=== PATIENT | female | born 1965 | race Caucasian/White ===

== ENCOUNTER 2019-01-23 04:48 | Inpatient (IN) ==
--- NOTE | 2019-01-06 15:49 | PAT Medication Instructions ---
Medication Instructions Date of Service January 06, 2019 Home Medications amitriptyline 25 mg PO HS celecoxib [Celebrex] 200 mg PO BID multivitamin 1 tab PO QDD ASK your surgeon for instructions celecoxib [Celebrex] 200 mg PO BID Take evening before surgery amitriptyline 25 mg PO HS multivitamin 1 tab PO QDD Other Notes If you have any questions please call us at [phone] or [phone] or [phone] or [phone]
--- NOTE | 2019-01-09 11:47 | Anesthesiology Consultation ---
Date of Service January 09, 2019 Assessment & Plan (1) Encounter for pre-operative examination: Chart Review Chart Review: Acceptable Risk for Surgery (pending surgeon-ordered PCP clearance done 12/30 ([facility])) and Patient seen in Pre Admission Testing Teaching & Discussion Pre-Anesthesia Teaching/Discussion Notes: Instructed NPO after midnight before surgery,except medications with 15 cc of water. Medication instructions provided according to the PAT guidelines. History Surgery Operation Date: 01/23/19 07:00 Proposed Procedures p Left Anterior Total Hip Arthroplasty - Aime Bryan DO Height/Weight Height: 5 ft 7 in Weight: 93.4 kg Allergies Allergy/AdvReac Type Severity Reaction Status Date / Time No Known Allergies Allergy Verified 01/03/19 08:35 Medications Home Medications Medication Instructions Recorded Confirmed Last Taken amitriptyline 25 mg PO HS 01/03/19 01/03/19 Unknown celecoxib [Celebrex] 200 mg PO BID 01/03/19 01/03/19 Unknown multivitamin 1 tab PO QDD 01/03/19 01/03/19 Unknown Past Medical History Medical History Obesity Osteoarthritis Exercise / Class Metabolic Activity II 4-5 Yardwork/Stairs/Walk up hill Past Surgical History Surgical History History of surgery I&D RIGHT LEG Hx of tubal ligation Past Anesthesia History No Hx of Anesthesia Complications and No Family Hx of Anesthesia Complications History of PONV No Hx of PONV and No Hx of Motion Sickness Social History Smoking Status: Never smoker Do You Dip or Chew Tobacco: No Hx Alcohol Use: Yes Alcohol type: wine alcohol intake frequency: a few times a month Hx Substance Use: No Review of Systems Chronic left hip pain. Patient denies chest pain, shortness of breath, cough, wheezing, palpitations. Physical Exam Vital Signs VITALS BP 140/92 P 68 TEMP 98.3 SP02 99%RA RESP 16 PHYSICAL Full neck and c-spine range of motion. Full TMJ range of motion. TMD 3 finger breaths Mallampati Score 3 Dentition: intact Lungs: clear throughout to auscultation Cardiac: regular rate and rhythm, no murmurs noted Spine: normal Carotid arteries: negative bruit Extremities: no edema Testing Laboratory Results 01/09/19 12:07 01/09/19 12:07 PT 10.2 Seconds (9.0-12.0) 01/09/19 12:07 INR 1.0 (0.9-1.1) 01/09/19 12:07 APTT 24.3 Seconds (21.0-31.0) 01/09/19 12:07 Hemoglobin A1c 5.6 % (4.5-5.6) 01/09/19 12:07 Urine Color Yellow 01/09/19 12:07 Urine Appearance Clear (Clear) 01/09/19 12:07 Urine pH 6.5 (4.5-7.5) 01/09/19 12:07 Ur Specific Conner 1.014 (1.000-1.030) 01/09/19 12:07 Urine Protein Negative (Negative) 01/09/19 12:07 Urine Glucose (UA) Negative (Negative) 01/09/19 12:07 Urine Ketones Negative (Negative) 01/09/19 12:07 Urine Nitrite Negative (Negative) 01/09/19 12:07 Ur Leukocyte Esterase Negative (Negative) 01/09/19 12:07 Blood Type A Positive 01/09/19 12:07 Antibody Screen NEGATIVE 01/09/19 12:07 01/09/19 12:07 Urine Culture - Preliminary Urine,Clean Catch No growth - Less than 1,000 colonies/mL, Final report to follow. Electrocardiogram Date: 01/09/19 NSR at 69bpm. Rightward axis. Chest X-Ray Date: 01/09/19 Findings: + NAD Atherosclerosis of the aortic arch. Cardiac silhouette normal in size. Calcified granulomata likely within the right apex and left midlung. Lungs and pleural spaces otherwise clear.
[2019-01-09 12:35] LABS: Basophils # (auto) 0.02 K/uL (0-0.2); Basophils % (auto) 0.4 %; Eosinophils # (auto) 0.05 K/uL (0-0.5); Hematocrit (blood only) 41.7 % (37-47); Hemoglobin 14.2 g/dL (12.0-16.0); Immature Granulocytes # (auto) 0.01 K/uL (0.00-0.02); Immature Granulocytes % (auto) 0.2 %; Lymphocytes # (auto) 1.61 K/uL (1.2-3.4); Lymphocytes % (auto) 33.7 %; Mean Corpuscular Hgb Conc 34.1 g/dL (32-36); Mean Corpuscular Volume 90.3 fL (80-100); Monocytes # (auto) 0.36 K/uL (0.11-0.59); Monocytes % (auto) 7.5 %; Neutrophils # (auto) 2.73 K/uL (1.4-6.5); Neutrophils % (auto) 57.2 %; Platelet Count 185 K/uL (130-400); RDW Coefficient of Variation 13.3 % (11.5-14.5); RDW Standard Deviation 43.9 fL (36.4-46.3); Red Blood Count 4.62 M/uL (4.2-5.4); White Blood Count 4.78 K/uL (4.8-10.8)
[2019-01-09 12:40] LABS: Appearance Urine Clear (Clear); Bilirubin Urine Negative (Negative); Blood Urine Negative (Negative); Color Urine Yellow; Glucose Urine UA Negative (Negative); Ketones Urine Negative (Negative); Leukocyte Esterase Urine Negative (Negative); Nitrite Urine Negative (Negative); Protein Urine Negative (Negative); Specific Gravity Urine 1.014 (1.000-1.030); Urobilinogen Urine Negative (Negative); pH Urine 6.5 (4.5-7.5)
--- NOTE | 2019-01-09 12:40 | XRay Report ---
XR chest Pre-admission PA/Lat CLINICAL HISTORY: 53 years-old Female presenting with preoperative assessment. TECHNIQUE: PA and lateral views of the chest were obtained. COMPARISON: None. FINDINGS: Atherosclerosis of the aortic arch. Cardiac silhouette normal in size. Calcified granulomata likely w ithin the right apex and left midlung. Lungs and pleural spaces otherwise clear. Osseous structures n ormal. Upper abdomen normal. IMPRESSION: 1. No acute cardiopulmonary disease. Electronically signed by: Rickey Ribeiro M.D. 01/09/2019 12:38 PM
[2019-01-09 12:44] LABS: Albumin Level 3.7 gm/dl (3.4-5.0); BUN Creatinine Ratio 20.3 (10-20); Calcium 9.4 mg/dl (8.5-10.1); Creatinine Clr Calc Pharmacy 112.6 ml/min; Est GFR (African American) 115.5; Est GFR (Non-African American) 99.7; Potassium 4.6 mmol/L (3.5-5.1)
[2019-01-09 12:51] LABS: Partial Thromboplastin Ratio 0.9; Partial Thromboplastin Time 24.3 Seconds (21.0-31.0); Prothrombin Time 10.2 Seconds (9.0-12.0)
[2019-01-09 13:08] LABS: Estimated Average Glucose 114 mg/dl; Hemoglobin A1C 5.6 % (4.5-5.6)
--- NOTE | 2019-01-22 12:53 | History & Physical Report ---
Date of Service January 22, 2019 Assessment & Plan (1) Degenerative joint disease of left hip: I have indicated the patient for left anterior total hip replacement. The risks, benefits and complications of surgery were explained to the patient which include but not limited to infection, acute blood loss, DVT/PE, injury to nerves, vessels, bone, soft tissue, arthrofibrosis, chronic pain, failure of the prosthesis, hip dislocation, leg length discrepancy, need for additional surgery, cardiac and pulmonary events and . The patient wished to proceed with surgery and informed consent was obtained at this time. We will plan for ASA BID post-operatively for DVT prophylaxis. Upon discharge the patient will be discharged home with home health services. Appropriate clearances by PCP were obtained. The patient was asymptomatic for UTI. History of Present Illness Chief Complaint: Left hip pain/djd Primary Care Provider: Geno Hdz The patient is a 53 year old female who presents with complaints of severe left hip pain and DJD. The patient has failed outpatient conservative treatments to this point which included NSAIDs, IA corticosteroid injection, home exercise/walking program. The patient's pain and limited function have progressed to the point where they severely hinder their activities of daily living and they no longer tolerate exercise programs. They are requesting to proceed with total hip replacement surgery. Allergies Allergy/AdvReac Type Severity Reaction Status Date / Time No Known Allergies Allergy Verified 01/23/19 05:30 Home Medications Home Medications Medication Instructions Recorded Confirmed Type amitriptyline 25 mg PO HS 01/03/19 01/23/19 History celecoxib [Celebrex] 200 mg PO BID 01/03/19 01/23/19 History multivitamin 1 tab PO QDD 01/03/19 01/23/19 History Past Med/Surg History Medical History Obesity Osteoarthritis Surgical History History of surgery I&D RIGHT LEG Hx of tubal ligation Social History Preferred Language: Tristanian Beliefs That Will Affect Care: None Current Living Situation: Family Feels Safe at Home: Yes Safety Concerns: Feels Safe At This Time Smoking Status: Never smoker Do You Dip or Chew Tobacco: No Second Hand Exposure: No Hx Alcohol Use: Yes Alcohol type: wine Hx Substance Use: No Review of Systems Review of Systems: All systems reviewed & are unremarkable except as noted in HPI & below Constitutional: as per Subjective / HPI Physical Exam Physical Exam: LLE NVSI +EHL/FHL/TA/GS SILT grossly, +2 DP pulse, compartments soft NT, limited painful ROM of the hip, antalgic gait. Constitutional: WD/WN, vitals as above Eyes: PERRL, conjunctivae normal, anicteric sclerae ENMT: external ear and nose normal, oropharynx normal Neck: trachea midline, no thyromegaly Respiratory: normal respiratory effort, lungs clear to auscultation Cardiovascular: RRR, no murmur, no edema Gastrointestinal (Abdomen): normal bowel sounds, soft, nontender, no hepatosplenomegaly Musculoskeletal: no cyanosis or clubbing, extremities motor strength 5/5 Skin: no rashes, warm and dry Neurologic: patellar DTR's 2+ bilat, sensation intact Psychiatric: A+Ox3, euthymic affect Lymphatic: no cervical or axillary lymphadenopathy Results & Data Diagnostic Findings Multiple views of the hip demonstrates severe DJD with complete loss of the joint space. +osteophytes, +sclerosis, +subchondral cysts.
[2019-01-23] MEDS ORDERED: METOCLOPRAMIDE HCL 10 MG TABLET PO SCH (06:00)
[2019-01-23] MEDS ORDERED: CeleBREX 200 MG CAP PO SCH (06:00)
[2019-01-23] MEDS ORDERED: TRANEXAMIC ACID 1,000 MG **IV Pre-op IV SCH (06:00)
[2019-01-23] MEDS ORDERED: dexAMETHasone 4 MG TAB PO SCH (06:00)
[2019-01-23] MEDS ORDERED: LR 500ML BOLUS, THEN 15ML/HR IV SCH (06:00)
[2019-01-23] MEDS ORDERED: FAMOTIDINE 20 MG TAB PO SCH (06:00)
[2019-01-23] MEDS ORDERED: ROPIVACAINE 0.5% HCL/PF 150 MG, BUPIVACAINE 0.5% MPF 30 ML, EPINEPHrine 0.15 MG, Ketoro... INFIL SCH (06:00)
[2019-01-23] MEDS ORDERED: CEFAZOLIN 2000MG 2,000 MG/15 ML SYR IV SCH (06:00)
[2019-01-23] MEDS ORDERED: ACETAMINOPHEN 500 MG TAB PO SCH (06:00)
[2019-01-23] MEDS ORDERED: LIDOCAINE HCL 2% 2 ML VIAL/AMP(20MG/ML) INFIL ONE (06:17)
[2019-01-23] MEDS ORDERED: PROPOFOL IV EMULSION 10 MG/ML 20 ML VIAL IV ONE ×6 (06:17→09:20)
[2019-01-23] MEDS ORDERED: fentaNYL citrate 100 MCG/2 ML VIAL ONE (06:17)
[2019-01-23] MEDS ORDERED: MIDAZOLAM HCL 1 MG/ML 2ML VIAL ONE (06:17)
[2019-01-23] MEDS ORDERED: ONDANSETRON INJ 2 MG/ML 2 ML VIAL ONE (06:18)
[2019-01-23] MEDS ORDERED: DEXAMETHASONE SOD INJ 4 MG/ML VIAL ONE (06:18)
[2019-01-23] MEDS ORDERED: TRANEXAMIC ACID 1,000 MG **IV Intra-op IV SCH (06:30)
[2019-01-23] MEDS ORDERED: BUPIVACAINE 0.5 % 5 MG/1 ML PF 10ML VIAL ONE (06:30)
[2019-01-23] MEDS ORDERED: ONDANSETRON INJ 2 MG/ML 2 ML VIAL IV PRN ×2 (06:33→11:18)
[2019-01-23] MEDS ORDERED: ATROPINE SULFATE 0.1 MG/ML 10ML SYR IV PRN (06:33)
[2019-01-23] MEDS ORDERED: fentaNYL citrate 100 MCG/2 ML VIAL IV PRN (06:33)
[2019-01-23] MEDS ORDERED: ePHEDrine sulfate 50 MG/ML AMP IV PRN (06:33)
[2019-01-23] MEDS ORDERED: BACITRACIN INJ 50,000 UNIT VIAL ONE (06:39)
--- NOTE | 2019-01-23 06:50 | History & Physical Bridge Note ---
Date of Service January 23, 2019 History & Physical Bridge Note I have examined the patient, reviewed the History & Physical and in the interval since the performance of the History & Physical I have noted the following changes of clinical significance: no changes noted
[2019-01-23] MEDS ORDERED: ePHEDrine sulfate 50 MG/ML SYR ONE (07:43)
[2019-01-23] MEDS ORDERED: PHENYLEPHRINE 100MCG/ML 5ML SYR ONE (07:44)
--- NOTE | 2019-01-23 09:13 | Post Operative Brief Note ---
Immediate Post Op Note v1 Date of Surgery January 23, 2019 Pre & Post Diagnosis Operation Date: 01/23/19 07:00 Pre-Op Diagnosis: LEFT HIP OSTEOARTHRITIS Post-Op Diagnosis: LEFT HIP OSTEOARTHRITIS Procedure Operation Date: 01/23/19 07:00 Actual Procedures p Left Anterior Total Hip Arthroplasty(Left) - Aime Bryan DO Surgeon Aime Bryan DO Soap Press Feeder Jaya Bhatt Estimated Blood Loss 125 Findings Consistent with Post-Op Diagnosis Fluids 700 cc LR Specimens femoral head Anesthesia Type Spinal MAC Complications none Disposition Disposition: Recovery Room Overlapping Procedure I was present for: the critical portions of procedure. I was immediately available: during the entire case. Back up surgeon: was not required during procedure.
--- NOTE | 2019-01-23 09:43 | Fluoroscopy Report ---
FL hip LT 1V HISTORY: 53 years-old Female LEFT ANTERIOR HIP left hip total joint arthroplasty COMPARISON: None available TECHNIQUE: 2 spot fluoroscopic images of the left hip were obtained utilizing 1 minute and 19.6 secon ds fluoroscopy time FINDINGS: Left hip total joint arthroplasty appears to be in satisfactory positioning. Right hip osteoarthritis . No acute fracture identified. Expected postsurgical soft tissue swelling and deep tissue air about the left hip. IMPRESSION: Fluoroscopic assistance as above. Please see operative report for further details. The above report was generated using voice recognition software. It may contain grammatical, syntax o r spelling errors. Electronically signed by: Chris Faria M.D. 01/23/2019 9:41 AM
--- NOTE | 2019-01-23 10:39 | XRay Report ---
XR hip 1V LT w pelvis CLINICAL HISTORY: 53 years-old Female presenting with IN PACU - A/P PELVIS and LATERAL HIP . TECHNIQUE: Single frontal view of the pelvis and crosstable lateral view of the left hip were obtaine d. COMPARISON: Fluoroscopic images from earlier today. FINDINGS: Redemonstration of the total left hip arthroplasty. No malalignment. No periprosthetic fracture. Expe cted overlying soft tissue emphysema. Remainder of the bony pelvis is intact. Right hip joint intact. IMPRESSION: Expected postsurgical appearance status post total left hip arthroplasty. Electronically signed by: Rickey Ribeiro M.D. 01/23/2019 10:38 AM
--- NOTE | 2019-01-23 10:48 | Anesthesiology Progress Note ---
Date of Service January 23, 2019 Anesthesia Post Procedure Vital Signs Vital Signs: Temp Pulse Pulse Resp BP Pulse Ox 01/23/19 10:35 62 17 111/71 100 01/23/19 10:25 62 15 108/71 100 01/23/19 10:15 63 20 117/70 100 01/23/19 10:05 61 12 110/69 100 01/23/19 09:55 63 12 108/69 98 01/23/19 09:47 97.0 F L 68 19 107/67 94 01/23/19 05:32 98.2 F 79 20 147/104 H 99 Pain Intensity Left Hip: Pain Intensity: 8 Transfer of Care Handoff Completed per policy Notes Mental Status: alert / awake / arousable and participated in evaluation Patient Amnestic to Procedure: Yes Nausea / Vomiting: adequately controlled Pain: adequately controlled Airway Patency, RR, SpO2: stable & adequate BP & HR: stable & adequate Hydration State: stable & adequate Neuraxial Anesthesia: was administered and sensory block is resolving Anesthetic Complications: no major complications apparent and Pt Satisfied with anesthetic care
[2019-01-23] MEDS ORDERED: OXYCODONE HCL IR 5 MG TAB (IMMEDIATE RELEASE) PO PRN (11:18)
[2019-01-23] MEDS ORDERED: MAGNESIUM HYDROXIDE SUSP 30 ML UDC PO PRN (11:18)
[2019-01-23] MEDS ORDERED: METOCLOPRAMIDE HCL INJ 5 MG/ML 2 ML VIAL IV PRN (11:18)
[2019-01-23] MEDS ORDERED: BISACODYL 10 MG SUPP PR PRN (11:18)
[2019-01-23] MEDS ORDERED: NALOXONE HCL 0.4 MG/1 ML VIAL/CARP IV PRN (11:18)
--- NOTE | 2019-01-23 11:37 | Operative Report ---
Post Operative Report Pre & Post Diagnosis Operation Date: 01/23/19 07:00 Pre-Op Diagnosis: LEFT HIP OSTEOARTHRITIS Post-Op Diagnosis: LEFT HIP OSTEOARTHRITIS Procedure Operation Date: 01/23/19 07:00 Actual Procedures p Left Anterior Total Hip Arthroplasty(Left) - Aime Bryan DO Surgeon Aime Bryan DO Meter Changes Records Clerk Jaya Bhatt Estimated Blood Loss 125 Findings Consistent with Post-Op Diagnosis Specimens Femoral head Anesthesia Type Spinal MAC Complications none Disposition Disposition: Recovery Room Indications The patient is a 53-year-old female who presents with severe progressive left hip DJD who has failed outpatient conservative treatments. I indicated the patient for a anterior total hip replacement and the risks and benefits were explained in detail which include but not limited to infection, bleeding, blood clot, damage to surrounding bone, nerves, vessels, soft tissue, hip dislocation, failure of the prosthesis, leg length discrepancy, need for additional surgery and . The patient agreed to proceed with replacement of the hip and informed consent was obtained. Appropriate clearances were obtained. Description of Procedure COMPONENTS USED: [employer] hip system: Acetabulum size 48, femur size 7 high offset, femoral head 32-3, liner 4832, acetabular screw 25 mm x 1. DESCRIPTION OF PROCEDURE: Following satisfactory spinal anesthesia, the patient was placed supine on the OR table. The right leg was placed in the well leg brooks and the left leg in the traction device. The left leg was prepared with ChloraPrep and draped sterilely. A surgical timeout was performed, patient identified and site rafi verified. Appropriate antibiotics were given. A standard anterior approach in the interval between the sartorius and tensor muscles was performed. Dissection was carried down through subcutaneous tissues. Electrocautery was utilized for hemostasis. Circumflex femoral vessels were identified, tied and ligated. The anterior capsular fat pad was removed and the capsulotomy was performed revealing the arthritic femoral neck and head. A femoral neck cut was made with reciprocating saw and the bone fragments removed. The acetabular self-retraining retractor was placed. Acetabular reaming was completed under fluoroscopic guidance, a 48 shell was impacted into an anatomic position and secured with a dome screw. Local an esthetic was placed and following irrigation, the polyethylene liner was placed. The femur was placed into position of external rotation, extension and adduction. Femoral canal was prepared up to the size 7 high offset. Trial reduction with a -3 neck length head showed good soft tissue tension, leg lengths restored, and good fit and fill of the proximal canal using fluoroscopic landmarks. The hip was dislocated. The trial component was removed. The final implant was placed. The hip was irrigated with sterile saline solution and reduced. A Betadine soak was performed. After 3 minutes, the hip was once more irrigated with copious sterile saline solution with bacitracin. Nica-incisional soft tissue was injected utilizing [place] [employer] which includes a combination of Ropivicaine 0.5% 150mg, Bupivicaine 0.5%/Epinephrine 1:200,000 30ml, Toradol 30mg, Dexamethasone 4mg, Ketamine 10mg, Clonidine 100mcg and NSS 30ml solution. The capsule was then closed with 1-0 Vicryl interrupted figure of eight sutures. The fascia was closed with a running suture of #1 Vicryl, the subcutaneous tissues with 2-0 Vicryl and the skin with a running subcuticular stitch of 3-0 V-Loc. Dermabond prineo and a dry dressing were applied. The patient tolerated the procedure well and was transported to PACU in stable condition. Due to the complex nature of the procedure, the entire surgery was performed with the operational assistance of Jaya Bhatt PA-C. The assistant field hockey coach, under direct supervision, was involved in the actual performance of all aspects of the surgical procedure including patient positioning, hemostasis, tissue retraction, instrument management and wound closure. I attest to the content of the Intraoperative Record and any orders documented therein. Any exceptions are noted below.
[2019-01-23] MEDS: KETOROLAC 30 MG/ML VIAL IV SCH ×2 (12:06→17:50)
[2019-01-23] MEDS: SODIUM CHLORIDE 0.9% 1000ML 1,000 ML IV SCH ×2 (12:07→23:06)
--- NOTE | 2019-01-23 12:25 | Orthopedic Progress Note ---
Date of Service January 23, 2019 Assessment & Plan (1) Degenerative joint disease of left hip: Status post left anterior total hip arthroplasty -Ancef x24 -DVT prophylaxis: SCDs, teds, ASA twice daily -Weight-bear as tolerates left lower extreme -PT/OT -Postoperative x-ray demonstrates a well aligned well fixed orthopedic prosthesis without fracture dislocation. -A.m. labs DC planning Subjective Post Operative Progress Note Patient seen sitting up in bed, comfortable, denies complaints, pain well controlled, no acute issues. Review of Systems Review of Systems: All systems reviewed & are unremarkable except as noted in HPI & below Constitutional: as per Subjective / HPI Physical Exam Physical Exam: LLE NVSI +EHL/FHL/TA/GS SILT grossly, +2 DP pulse, compartments soft NT, dressing cdi. Constitutional: WD/WN, vitals as above Results & Data Vital Signs (Past 12 Hours) Vital Signs Temp Pulse Pulse Pulse Resp BP Pulse Ox 01/23/19 12:00 75 16 124/85 100 01/23/19 11:32 67 16 120/85 100 01/23/19 11:00 36.3 C L 64 16 119/71 99 01/23/19 10:45 36.3 C L 79 16 111/75 100 01/23/19 10:35 62 17 111/71 100 01/23/19 10:25 62 15 108/71 100 01/23/19 10:15 63 20 117/70 100 01/23/19 10:05 61 12 110/69 100 01/23/19 09:55 63 12 108/69 98 01/23/19 09:47 36.1 C L 68 19 107/67 94 01/23/19 05:32 36.8 C 79 20 147/104 H 99
[2019-01-23] MEDS: ACETAMINOPHEN 500 MG TAB PO SCH ×2 (13:25→22:11)
[2019-01-23] MEDS: CEFAZOLIN 2000MG 2,000 MG/15 ML SYR IV SCH ×2 (14:50→22:12)
[2019-01-23] MEDS: DOCUSATE SODIUM 100 MG CAP PO SCH (20:43)
[2019-01-23] MEDS ORDERED: AMITRIPTYLINE HCL 25 MG TAB PO SCH (21:00)
[2019-01-23] MEDS ORDERED: SENNA 8.6 MG TAB PO SCH (21:00)
[2019-01-24] MEDS: KETOROLAC 30 MG/ML VIAL IV SCH ×2 (00:07→05:57)
[2019-01-24] MEDS: ACETAMINOPHEN 500 MG TAB PO SCH (05:57)
[2019-01-24 06:19] LABS: Hematocrit (blood only) 33.4 % (37-47); Hemoglobin 11.2 g/dL (12.0-16.0); Immature Granulocytes # (auto) 0.02 K/uL (0.00-0.02); Immature Granulocytes % (auto) 0.2 %; Lymphocytes # (auto) 1.25 K/uL (1.2-3.4); Lymphocytes % (auto) 10.1 %; Mean Corpuscular Hgb Conc 33.5 g/dL (32-36); Mean Platelet Volume 9.7 fL (7.4-10.4); Monocytes # (auto) 1.12 K/uL (0.11-0.59); Neutrophils % (auto) 80.7 %; Platelet Count 162 K/uL (130-400); RDW Coefficient of Variation 13.3 % (11.5-14.5); RDW Standard Deviation 44.4 fL (36.4-46.3); Red Blood Count 3.63 M/uL (4.2-5.4); White Blood Count 12.39 K/uL (4.8-10.8)
[2019-01-24 06:51] LABS: BUN Creatinine Ratio 23.8 (10-20); Est GFR (African American) 118.5; Est GFR (Non-African American) 102.2; Potassium 4.1 mmol/L (3.5-5.1)
--- NOTE | 2019-01-24 07:49 | Anesthesiology Progress Note ---
Date of Service January 24, 2019 Anesthesia Post Procedure Vital Signs Vital Signs: Temp Pulse Pulse Pulse Resp BP Pulse Ox 01/24/19 07:01 36.8 C 82 16 106/74 96 01/24/19 03:22 37.1 C 89 15 107/65 98 01/24/19 00:01 36.8 C 87 14 113/72 98 01/23/19 19:24 36.8 C 87 18 111/74 98 01/23/19 15:17 36.8 C 80 17 107/70 97 01/23/19 14:00 36.6 C 81 16 109/74 99 01/23/19 12:56 78 16 120/80 99 01/23/19 12:00 75 16 124/85 100 01/23/19 11:32 67 16 120/85 100 01/23/19 11:00 36.3 C L 64 16 119/71 99 01/23/19 10:45 36.3 C L 79 16 111/75 100 01/23/19 10:35 62 17 111/71 100 01/23/19 10:25 62 15 108/71 100 01/23/19 10:15 63 20 117/70 100 01/23/19 10:05 61 12 110/69 100 01/23/19 09:55 63 12 108/69 98 01/23/19 09:47 36.1 C L 68 19 107/67 94 Pain Intensity Left Hip: Pain Intensity: 0 Notes Mental Status: alert / awake / arousable and participated in evaluation Patient Amnestic to Procedure: Yes Nausea / Vomiting: adequately controlled Pain: adequately controlled Airway Patency, RR, SpO2: stable & adequate BP & HR: stable & adequate Hydration State: stable & adequate Neuraxial Anesthesia: was administered and sensory block resolved Anesthetic Complications: no major complications apparent and Pt Satisfied with anesthetic care
--- NOTE | 2019-01-24 08:00 | Orthopedic Progress Note ---
Date of Service January 24, 2019 Assessment & Plan (1) Degenerative joint disease of left hip: Status post left anterior total hip arthroplasty POD#1 -Ancef x24 -DVT prophylaxis: SCDs, teds, ASA twice daily -Weight-bear as tolerates left lower extreme -PT/OT -Postoperative x-ray demonstrates a well aligned well fixed orthopedic prosthesis without fracture dislocation. -A.m. labs - hgb 11.2 DC planning home with HH Subjective Post Operative Progress Note Patient seen sitting up in bed, comfortable, denies complaints, pain well controlled, no acute issues. Review of Systems Review of Systems: All systems reviewed & are unremarkable except as noted in HPI & below Constitutional: as per Subjective / HPI Physical Exam Physical Exam: LLE NVSI +EHL/FHL/TA/GS SILT grossly, +2 DP pulse, compartments soft NT, dressing cdi. Constitutional: WD/WN, vitals as above Results & Data Vital Signs (Past 12 Hours) Vital Signs Temp Pulse Pulse Resp BP Pulse Ox 01/24/19 07:01 36.8 C 82 16 106/74 96 01/24/19 03:22 37.1 C 89 15 107/65 98 01/24/19 00:01 36.8 C 87 14 113/72 98
[2019-01-24] MEDS: DOCUSATE SODIUM 100 MG CAP PO SCH (08:37)
[2019-01-24] MEDS ORDERED: CeleBREX 200 MG CAP PO SCH (09:00)
[2019-01-24] MEDS ORDERED: ASPIRIN 325 MG ECTAB PO SCH (09:00)
[2019-01-24] MEDS ORDERED: MULTIVITAMIN TAB PO SCH (09:00)
--- NOTE | 2019-01-24 20:35 | Discharge Summary ---
Date of Service January 24, 2019 Admission HPI Per Admitting Provider The patient is a 53 year old female who presents with complaints of severe left hip pain and DJD. The patient has failed outpatient conservative treatments to this point which included NSAIDs, IA corticosteroid injection, home exercise/walking program. The patient's pain and limited function have progressed to the point where they severely hinder their activities of daily living and they no longer tolerate exercise programs. They are requesting to proceed with total hip replacement surgery. Principal Diagnosis Left anterior total hip replacement Discharge Exam LLE NVSI +EHL/FHL/TA/GS SILT grossly, +2 DP pulse, compartments soft NT, dressing cdi. Constitutional WD/WN, vitals as above Discharge Data Allergies Allergy/AdvReac Type Severity Reaction Status Date / Time No Known Allergies Allergy Verified 01/23/19 05:30 Consultations 01/24/19 08:00 Consult Case Management - Discharge Planning Routine Procedures Performed Operation Date: 01/23/19 07:00 Actual Procedures p Left Anterior Total Hip Arthroplasty(Left) - Aime Bryan DO Ordered Studies 01/23/19 07:00 FL fluoroscopy <1hr Routine FL hip LT 1V Routine Hospital Course (1) Degenerative joint disease of left hip: The patient is a 53 -year-old female who presents with long standing history of severe left DJD and failed outpatient conservative treatments including NSAIDs, bracing, injections and home walking/exercise program. The patient's symptoms have progressed to the point where it has been difficult to perform even normal activities of daily living. I indicated the patient for a left anterior total hip arthroplasty, the risks, benefits and complications of the procedure include but not limited to infection, bleeding, damage to bone, nerves, vessels, surrounding soft tissue, may develop blood clots, loss of function, leg length discrepancy, dislocation, failure of the components, loosening of the components, the need for additional surgery and . The patient wished to proceed with surgery at this time and informed consent was obtained. Hospital Course: On 01/23/19 the patient was taken to the operating room, adequate anesthesia administered and underwent a left anterior total hip arthroplasty. The patient tolerated the procedure well and was taken to the PACU in stable condition. Post-operatively the patient was started on a DVT ppx medication and given appropriate IV antibiotics. Consults were placed to physical therapy, occupational therapy and case management. On POD#1, the patient did well overnight and their pain was well controlled. Labs were drawn and the Hgb was 11.2. The patient progressed well with PT. Dressings were changed at this time and the incision was clean, dry and intact. The patients hospital stay was relatively uneventful and they were deemed stable by the orthopedic team and consultants to be discharged home with HH on 01/24/19. Discharge Instructions: Upon discharge the patient may weight bear as tolerates through their operative extremity. They were instructed to keep the incision clean and dry at all times. The patient may shower but should not submerge the incision, avoid bathing, pools and hot tubes. The patient was given a script for pain medication and should take as instructed. The patient was given a script for DVT ppx ASA 325mg BID and should take as directed. The patient was instructed to not drive or travel for long distances until cleared to do so. If the patient develops any symptoms of fevers, chills, nausea, vomiting, increased redness, swelling, pain or drainage from the surgical site, they should notify the office and/or proceed to the nearest emergency room. The patient should follow up in 10-14 days after surgery for their routine post-operative follow-up appointment and should call the office to confirm the date and time. Status post left anterior total hip arthroplasty POD#1 -Ancef x24 -DVT prophylaxis: SCDs, teds, ASA twice daily -Weight-bear as tolerates left lower extreme -PT/OT -Postoperative x-ray demonstrates a well aligned well fixed orthopedic prosthesis without fracture dislocation. -A.m. labs - hgb 11.2 DC planning home with HH Total Time Total Time Spent Total Time Spent (In Minutes): 30 minutes Total Time Includes: Examination of the Patient, Discharge Planning, Medication Reconciliation and Communication With Other Providers Discharge Plan Discharge Items Patient Disposition: Home - Home Health Services Reason For Visit: LEFT HIP OSTEOARTHRITIS Discharge Diagnosis: Left anterior total hip replacement Condition: Good Discharge Goals: Decrease discomfort, Improve disease control and Improve function Activity: Per 'Additional Instructions' section Lifting: Wait until after follow-up appointment Bathing Comment: No bathing, pools or hot tubs Sexual Activity: Wait until after follow-up appointment Exercise/Sports: Wait until after follow-up appointment Driving/Machine Use Comment: No driving till cleared by your surgeon Weightbearing: Left weightbearing Non-emergency contact: Primary Care Provider and Surgeon Call non-emergency contact if: you have any medication questions, your symptoms worsen, your pain is not controlled, your pain is worsening, your pain is unusual for you, your pain is concerning for you, you have a fever, your temperature is above 101, your wound has increased redness, your wound has increased drainage and your wound pain has increased Follow-up/Referrals: Geno Hdz M.D. [Primary Care Provider] - Diet: Regular Addtl Provider Instructions: ACTIVITY RECOMMENDATIONS: SELF CARE INSTRUCTIONS AFTER TOTAL HIP REPLACEMENT : Direct Anterior Approach Until the incision and soft tissues around your hip have healed, there is a possibility that the hip prosthesis could dislocate. A. Hip flexion ( Up & Down out of chair or steps ) may be difficult. This is normal. B. Numbness in front of the thigh is also normal for a few weeks. C. Use hand rails when walking on stairs. D. Wear low heeled shoes with non-slip soles. E. Be sure that your floors are free of things that could trip you - throw rugs, electrical cords, small objects. Avoid wet and waxed floors, especially with crutches and canes. F. Try to walk several times a day with rest periods between. G. Continue with all the exercises taught to you in the hospital. Again, make walking a part of your daily routine. SPECIAL CARE INSTRUCTIONS: VERY IMPORTANT TO READ AND REVIEW A. You may still be at risk for phlebitis and blood clots. 1. Wear surgical stockings (CAL hose) for 2 weeks after surgery to improve circulation and reduce swelling. 2. Take Aspirin 325mg twice daily for 4 weeks or as directed by your doctor. This is your blood thinner. 3. High risk patients may be prescribed a stronger blood thinner if necessary. 4. If you are on Coumadin normally, your family doctor/set up / operator should monitor your blood work. Expect a phone call the day of or the day after bloodwork is drawn to adjust your dosage. B. You must take antibiotics before having dental work, bladder, bowel and other surgery. Your doctor will provide you with a permanent card to carry describing precautions. C. Call [facility] if you have a fever, redness or swelling around the incision, cloudy drainage from incision, or sudden increase in pain in your hip, not relieved by your regular pain medication. D. Please call the office at if you have any concerns or questions about your operation or recovery. * YOU MAY SHOWER, NO TUB BATHS UNTIL CLEARED BY YOUR DOCTOR. - Keep an extra close eye on the top portion of your incision. Be sure to keep clean & dry. * WEAR CAL HOSE 20 HOURS PER DAY FOR 2 WEEKS. * YOU MAY PROGRESS FROM A WALKER, TO A CANE, TO INDEPENDENT AT YOUR OWN PACE. * MOST PATIENTS WILL HAVE HOME NURSING FOR THERAPY. IF YOU DECIDE TO DO OUTPATIENT PHYSICAL THERAPY, PLEASE SCHEDULE THIS 3 TIMES PER WEEK. * DERMABOND Prineo- This is a mesh tape dressing that is covered with glue. It should remain in place until the incision is properly healed, usually 10-14 days. This dressing is designed to naturally slough off. You may trim the excess mesh tape as it peels off. Incision may be briefly wet in a shower. Dry immediately by blotting with a clean, dry towel. Do not bath or swim until instructed by your doctor. Do not scratch, rub, or pick at the dressing. Do not apply any topical ointments or lotions until dressing is completely removed and/or instructed by your doctor. There may be a small piece of suture material at one end of your incision. Do not pull or trim this. If it is bothersome or catching on clothing, you may cover it with a band-aid. FOLLOW UP VISIT: If appointment is not already scheduled: Please call [facility] to make a follow-up appointment for 2 weeks after your surgery at . Prescriptions: New acetaminophen [Tylenol Extra Strength] 500 mg Tablet 1,000 mg PO Q8 PRN (Reason: pain) Qty: 90 RF: 0 celecoxib [Celebrex] 200 mg Capsule 200 mg PO BID PRN (Reason: pain) Qty: 28 RF: 0 aspirin 325 mg Tablet,Delayed Release (Dr/Ec) 325 mg PO BID Qty: 56 RF: 0 oxycodone 5 mg Tablet 5 mg PO Q6H MDD 6 tabs PRN (Reason: pain) Qty: 30 RF: 0 sennosides [Senokot] 8.6 mg Tablet 17.2 mg PO HS PRN (Reason: constipation) Qty: 28 RF: 0 Continued multivitamin Tablet 1 tab PO QDD RF: 0 amitriptyline 25 mg Tablet 25 mg PO HS RF: 0 Discontinued celecoxib [Celebrex] 200 mg Capsule 200 mg PO BID RF: 0 Stand-Alone Forms: [facility] [employer] Lila/Other Patient Handouts: Surgery Prevent DVT After, ED Stockings Cal Discharge Orders: Discharge Order (Routine); Ordered 01/24/19 Ordered By: Aime Bryan Admission Data Admit Date/Time: 01/23/19 09:54 Attending Provider: Aime Bryan Admit Provider: Aime Bryan Primary Care Provider: Geno Hdz V. Service: Surgical Services Other Interventions: Discharge Summary Assessment (RN) Last Done: 01/24/19 08:51 DC Date/Time DO NOT enter until pt leaves facility: 01/24/19 13:16
== END 2019-01-24 13:16 | disposition home health service (06) | DRG 470 ==
LOC: ASU 04:48 → 3E 09:54